=== PATIENT | male | born 1955 | race Caucasian/White ===

== ENCOUNTER 2017-01-30 17:16 | Emergency (ER) | payer OTHER ==
[~2017-01-30] VITALS: Ht 170.2 cm; Wt 72.7 kg
[2017-01-30 17:17] VITALS: BP 181/94; PULSE 74; RESP 16; O2SAT 97
[2017-01-30] MEDS ORDERED: ASPI-973 PO (17:20)
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
[2017-01-30 18:39] VITALS: BP 158/86; PULSE 62; RESP 18; O2SAT 99
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
== END 2017-01-30 19:00 | disposition home or self-care (01) ==
LOC: SED 17:16
DX: S70.02XA Contusion of left hip, initial encounter (principal); S50.312A Abrasion of left elbow, initial encounter; S40.212A Abrasion of left shoulder, initial encounter; S80.211A Abrasion, right knee, initial encounter; S80.212A Abrasion, left knee, initial encounter; I15.8 Other secondary hypertension; R07.89 Other chest pain; V19.40XA Pedal cycle driver injured in collision with unspecified motor vehicles in traffic accident, initial encounter; Y93.55 Activity, bike riding; Y99.8 Other external cause status; Y92.410 Unspecified street and highway as the place of occurrence of the external cause